=== PATIENT | male | born 1970 | race Caucasian/White ===

== ENCOUNTER 2016-11-20 16:39 | Emergency (ER) | payer OTHER ==
[~2016-11-20 16:39] MED LIST: AMOXIL PO; ATENOLOL PO; ATIVAN PO; AUGMENTIN875 MG PO; BACTROBAN22 GM TP; BLOOD PRESSURE MED; CELEBREX PO; CHOLESTEROL MEDS; CLEOCIN HCL300 M1 PO; DIOVAN HCT 160-1 TAB PO; FLEXERIL PO; INDOMETHACIN25 MG PO; KEFLEX500 M1 PO; KEFLEX500 M2 PO; LORTAB 7.5-5001 TAB PO; MEDROL PO; NAPROSYN500 MG PO; NAPROXEN PO; NO MEDICATIONS; NORVASC PO; NORVASC10 MG PO; PRILOSEC PO; PRINIVIL10 MG PO; TRAMADOL HCL50 M1 PO; ULTRAM PO; VICODIN 5/500 T1 TAB PO; VOLTAREN75 MG PO; ZOLOFT100 MG PO; ZYLOPRIM100 MG PO; [UNRECOGNIZED DRUG - REMARK]
== END 2016-11-20 17:15 | disposition home or self-care (01) ==
LOC: SED 16:39
DX: Z45.2 Encounter for adjustment and management of vascular access device (principal); Z98.890 Other specified postprocedural states
CPT/HCPCS: 99283